=== PATIENT | female | born 1980 | race Caucasian/White ===

== ENCOUNTER 2023-12-27 19:49 | Emergency (ER) | payer OTHER, SELFPAY ==
[2023-12-27 20:09] VITALS: BP 156/89; PULSE 90; RESP 18; TEMP 36.4; O2SAT 96; BMI 38.0
--- NOTE | 2023-12-27 20:11 | ED_ITS ---
HPI - General Adult General Chief complaint: Skin/Abscess/Foreign Body Stated complaint: personal History of Present Illness HPI narrative: Patient left before completion of treatment by ED provider. Related Data Allergies Allergy/AdvReac Type Severity Reaction Status Date / Time No Known Allergies Allergy Verified 12/27/23 20:10 [facility] Social History Social History Unable to assess alcohol history related to: Unknown Use of substances other than those prescribed or required for medical reasons: Unknown Advance Directives: No Advance Directives Information Provided: Yes Do you have a plan to hurt others: No Plan Physical Exam ED Vital Signs: Vital Signs - 24 hr 12/27/23 20:09 12/27/23 22:16 Temperature 97.5 F 97.9 F Pulse Rate 90 91 Respiratory Rate 18 14 Blood Pressure 156/89 H 127/60 Pulse Oximetry 96 94 Oxygen Delivery Method Room Air Room Air BMI result Body Mass Index 38.0 Course Course Course Narrative: RME: 43 yold female presents to the abdominal wall abscess. Patient has area of redness on abdomen with tenderness and mild fluctlance. patient to be evaluated in [facility]. Patient may need Incision and drainage of abscess. Discharge Plan Discharge Clinical Impression: Cellulitis, Abscess of skin or subcutaneous tissue Patient Disposition: Left W/O Completing Treatment Discharge Date/Time: 12/28/23 00:42
[2023-12-27 22:16] VITALS: BP 127/60; PULSE 91; RESP 14; TEMP 36.6; O2SAT 94
== END 2023-12-28 00:42 | disposition left against medical advice (07) ==
PROVIDERS: Emergency Provider Emergency Medicine Emergency Medical Services; PCP Student in an Organized Health Care Education/Training Program
DX: L03.311 Cellulitis of abdominal wall (principal)
CPT/HCPCS: 99283

== ENCOUNTER 2023-12-29 15:14 | Emergency (ER) | payer OTHER, SELFPAY ==
[2023-12-29 15:50] VITALS: BP 126/73; PULSE 101; RESP 16; TEMP 36.4; O2SAT 96; BMI 41.0
--- NOTE | 2023-12-29 15:53 | ED.SKABFB ---
HPI - Skin/Abscess/Foreign Bdy General Chief complaint: Skin/Abscess/Foreign Body Stated complaint: Personal issue Time Seen by Provider: 12/29/23 19:13 Source: patient Limitations: no limitations History of Present Illness ED Provider: Radha dozier PA-C HPI narrative: 43-year-old morbidly obese female presents with abscess on abdominal wall. Patient states she developed a tender swelling over lower abdominal wall 4 days ago, it has increased in size and pain. Now with overlying erythema and warmth to the area. Denies active drainage or fevers. Related Data Previous Rx's ?Medication ?Instructions ?Recorded doxycycline hyclate 100 mg capsule 100 mg PO BID #14 caps 12/29/23 Allergies Allergy/AdvReac Type Severity Reaction Status Date / Time banana Allergy throat Verified 12/29/23 15:55 itching peanut Allergy Anaphylaxis Verified 12/29/23 15:55 Review of Systems Review of Systems: Yes all other systems are reviewed and are negative Constitutional: Constitutional: Denies fatigue and Denies fever(s) Respiratory: Respiratory: Denies cough Gastrointestinal: Gastrointestinal: Reports abdominal pain, Denies nausea and Denies vomiting Integumentary/Breasts: Skin/Breast: Reports erythema, Denies rash, Reports skin pain, Reports skin swelling and Reports wounds Endocrine: Endocrine: Denies fatigue PMFSH Past Medical History Attestation statement: The following information was validated with the patient. Social History Social History Unable to assess alcohol history related to: Unknown Advance Directives: No Advance Directives Information Provided: No Physical Exam Vital Signs: Vital Signs: Last Vital Signs Temp 98.2 F 12/29/23 18:03 Pulse 89 12/29/23 18:03 Resp 16 12/29/23 18:03 BP 146/70 H 12/29/23 18:03 Pulse Ox 98 12/29/23 18:03 O2 Del Method Room Air 12/29/23 18:03 BMI result Body Mass Index 41.0 Const: Other: Alert, overall well-appearing, but does appear older than stated age Orientation/consciousness: patient oriented x3 Resp: Other: Nonlabored respiration Cardio: Other: Normal peripheral perfusion GI: Other: Indurated region over the lower pannus with central fluctuance, overlying erythema, warmth, is tender to palpation Skin: Other: Warm dry no rash Neuro: General: patient oriented x3, no focal motor deficits and CN's II-XI intact bilaterally Psych: Other: calm cooperative Course Course Course Narrative: This is an RME performed by Daija Waldron CNP: Additional HPI, ROS, PE not included below will be deferred to primary provider. Patient is a 43-year-old female who presents to the emergency department for evaluation, reports Four days with a cyst to the no abdominal fold increasing in size pain and redness. Since she has many similar in this area in the past requiring incision and drainage. Denies any active drainage. Exam: Unable to visualize in triage due to privacy concerns Medications Administered Discontinued Medications Generic Name Dose Route Start Last Admin Trade Name Freq PRN Reason Stop Dose Admin Doxycycline Monohydrate 100 mg 12/29/23 19:37 12/29/23 19:55 Doxycycline Monohydrate 100 Mg Capsule PO 12/29/23 19:38 100 mg ONCE ONE Administration Lidocaine/Epinephrine/Tetracaine 3 ml 12/29/23 19:36 12/29/23 19:56 Lidocaine/Racepinep/Tetracaine 3 Ml Gel.Pf.Leelee TOPICAL 12/29/23 19:37 3 ml ONCE ONE Administration Medical Decision Making Medical Decision Making MDM Narrative: 43-year-old morbidly obese female presents with abscess on abdominal wall. Patient states she developed a tender swelling over lower abdominal wall 4 days ago, it has increased in size and pain. Now with overlying erythema and warmth to the area. Denies active drainage or fevers. Problem: Obesity History: Per patient I have considered the following differential diagnoses: Cellulitis, purulent cellulitis, cyst, abscess Plan: The patient has what appears to be an abscess with overlying cellulitis. I and D was performed of the area, it is actually hematoma. Patient states her pannus often hits objects when she bends over, she could have sustained trauma to the area. We will treat for the cellulitis, she can follow up with her primary care provider. No indication for labs or imaging. Patient covered with doxycycline Procedures Abscess I/D Site: other (Pannus) Side (if applicable): right Sedation/analgesia: none Local Anesthetic: lidocaine 1% and with epi Amount of anesthesia used (mL): 5 Technique: incised with blade Amount of fluid expressed (mL): 5 Sent for culture/gram staining?: No Irrigation: Yes Packing used?: none Discharge Plan Discharge Clinical Impression: Cellulitis, Hematoma Patient Disposition: Home, Self-Care Instructions: Cellulitis (ED), Incision and Drainage (ED) Additional Instructions: You were found to have a hematoma, it was drained at bedside. You do have overlying cellulitis. See home care instructions. Take the doxycycline as directed. Follow up with your primary care provider for a wound check this coming week. Prescriptions: New doxycycline hyclate 100 mg capsule 100 mg PO BID Qty: 14 0RF Print Language: Macedonian
[2023-12-29 18:03] VITALS: BP 146/70; PULSE 89; RESP 16; TEMP 36.8; O2SAT 98
--- NOTE | 2023-12-29 18:31 | PC.NURSE ---
pt is reporting 5/10 pain, is awaiting initial eval in tx area. call montejo is in reach.
[2023-12-29] MEDS: Doxycycline Monohydrate 100 MG CAPSULE PO (19:55)
[2023-12-29] MEDS: Lidocaine/Racepinep/Tetracaine 3 ML GEL.PF.APP TOPICAL (19:56)
[2023-12-29 21:02] VITALS: BP 146/70; PULSE 89; RESP 16; TEMP 36.8; O2SAT 98
[2023-12-29] MEDS: Lidocaine HCl 1%/Epi 1:100,000 10 ML VIAL INFILTRATI (21:02)
== END 2023-12-29 21:03 | disposition home or self-care (01) ==
PROVIDERS: Emergency Provider Internal Medicine; PCP Student in an Organized Health Care Education/Training Program
DX: L03.311 Cellulitis of abdominal wall (principal); R10.9 Unspecified abdominal pain
CPT/HCPCS: 10060; 99282; 99284; J2004